=== PATIENT | female | born 1985 ===

== ENCOUNTER 2016-11-02 13:59 | Emergency (ER) | payer MEDICAID, OTHER ==
[~2016-11-02] VITALS: Ht 157.5 cm; Wt 31.0 kg
[2016-11-02 14:13] VITALS: BP 125/86; PULSE 99; RESP 12; O2SAT 98
--- NOTE | 2016-11-02 17:48 | ED.REPORT ---
HPI-Extremity Problem Upper Date of Service Nov 02, 2016 ED Provider: Yadira Braun History of Present Illness: Seen at [facility] [place] about 2 am this morning. right deltoid opened for abscess, nothing out. Large amount of bleeding, controlled at present. Concern for deep abscess. denies fevers chill vomiting Nursing Notes Stated Complaint: OPEN WOUND ON LEFT ARM Chief Complaint: General Complaint Nursing Notes Reviewed: Yes Allergies: Coded Allergies: No Known Allergies (Verified , 12/22/03) General Time Seen by MD: 16:24 Chief Complaint Other (right deltoid area ) Hx Obtained From: Patient Onset Occurred: 13 - 16 hours ago Symptom Duration: Since onset Past Medical History Past Medical History Denies: Asthma, Diabetes mellitus Past Surgical History denies Smoking History Current Every Day Smoker (1 pack a day for 15 years) Social History Alcohol Use: "Social" Drug Use: Other Occupation in a relationship, no work or school Ambulatory Status Independent Review of Systems Basic Review of Systems Eyes: Vision NL, No discharge : No dysuria, No frequency Psychiatric: Normal thought content Physical Exam Initial Vital Signs Vital Signs (First) Date Time Temp Pulse Resp B/P Pulse Ox O2 Delivery O2 Flow Rate FiO2 11/02/16 14:13 36.4 99 12 125/86 98 Room Air Initial VS: Reviewed, Vital signs normal General/Constitutional: Well-developed, Well-nourished Head / Eyes: Atraumatic, Normocephalic, PERRL ENT: Mucous membranes moist, Conjunctiva normal, No scleral icterus Neck: Supple, Non-tender, Full range of motion Respiratory: Breath sounds normal, Clear to auscultation, No respiratory distress Cardiovascular: Regular rate & rhythm, Heart sounds normal, Intact distal pulses Abdomen / GI: Soft, Non-tender, No guarding, No rebound, No distention Back: No CVA tenderness Lymphatic: No lymphadenopathy Lower Extremities: Vascular intact, Neuro intact, No swelling, No tenderness Skin: Warm, Dry, No cyanosis Neurologic: Alert, Oriented, Nonfocal Psychiatric: Mood/affect normal, Behavior normal, Normal thought content General/Constitutional: Awake, Alert, No acute distress Neck: Atraumatic, Supple, No meningismus, Full range of motion Respiratory / Chest: Atraumatic, Breath sounds NL, Breath sounds = bilat, No respiratory distress Cardiovascular: Heart rate NL, Regular rhythm, Heart sounds NL, No gallop right upper arm in the deltoid region has palpable lump with .6 cm incision. site underneath has filled with clotted blood. sensation intact distally caprill refill less than 2 sec. Interpretation & Diagnostics US Soft Tissue/Musculoskeletal PROCEDURE: US EXTREMITY SONOGRAM LIMITED ([id number]) INDICATIONS: ? deep abscess TECHNIQUE: Real-time scanning was performed of the right upper extremity, with image documentation. COMPARISON: None. FINDINGS: There is a 2.7 x 1.4 x 2.6 cm phlegmon within the right upper extremity deep to the superficial wound. A second phlegmon is present inferior to the wound which measures 3.4 x 1.2 x 3.2 cm. There is no discrete fluid collection amenable to drainage. There is marked hyperemia within these 2 areas of inflammation. IMPRESSION: 1. 2 discrete soft tissue phlegmons described above. No discrete fluid collection amenable to percutaneous drainage. Dictated by: Hilda Pendleton M.D. on 11/02/2016 at 17:44 Approved by: Hilda Pendleton M.D. on 11/02/2016 at 17:46 Re-Eval/Medical Decision Med Decision/Clinical Course 31 year old female presents for evualation of right upper arm. Was opened at [place] this am with nothing out. Had concerns might be a deep abscess. Ultasound does not show any thing that can be drained. Advised to return should she develop increaseing pain and or fever. No sign of a clot formation or compartment syndrome. Discharge & Departure Impression: Primary Impression: Right arm pain Disposition: Home Patient Instructions: Abscess (ED) Additional Instructions: The Ultrasound does not show any sign of an abscess. It does show 2 small areas of possible inflammation. At this time, there is nothing to drain. The area that was opened this morning has filled with blood. The area has been washed and covered. You are being started on antibiotics, bactrim in the am and pm. If you develop fevers. chills, nausea or vomiting or increasing pain return to the ER. I am sorry this happened to you!. Referrals: PETRA MOONEY (PCP) EDSupervising Provider for APC: Kd Mcclelland MD copies to: PETRA MOONEY Sue ARNP Nov 02, 2016 17:48
--- NOTE | 2016-11-02 17:48 | DRSVH ---
PROCEDURE: US EXTREMITY SONOGRAM LIMITED ([id number]) INDICATIONS: ? deep abscess TECHNIQUE: Real-time scanning was performed of the right upper extremity, with image documentation. COMPARISON: None. FINDINGS: There is a 2.7 x 1.4 x 2.6 cm phlegmon within the right upper extremity deep to the superfi cial wound. A second phlegmon is present inferior to the wound which measures 3.4 x 1.2 x 3.2 cm. The re is no discrete fluid collection amenable to drainage. There is marked hyperemia within these 2 are as of inflammation. IMPRESSION: 1. 2 discrete soft tissue phlegmons described above. No discrete fluid collection amenable to percuta neous drainage. Dictated by: Hilda Pendleton M.D. on 11/02/2016 at 17:44 Approved by: Hilda Pendleton M.D. on 11/02/2016 at 17:46
[2016-11-02] MEDS ORDERED: Trimethoprim-Sulfa 160 mg-800 mg Tablet PO ONE (17:55)
[2016-11-02 18:05] VITALS: BP 129/90; PULSE 88; RESP 16; O2SAT 100
== END 2016-11-02 18:06 | disposition home or self-care (01) ==
LOC: SED 13:59
DX: M79.601 Pain in right arm (principal); F17.200 Nicotine dependence, unspecified, uncomplicated